=== PATIENT | female | born 1965 | race African-American/Black ===

== ENCOUNTER → 2022-11-23 13:31 | Outpatient (BNVA) | payer OTHER, SELFPAY | PROVIDERS: PCP Internal Medicine; Visit Provider Internal Medicine Rheumatology | DX: M79.7 Fibromyalgia (principal); M32.9 Systemic lupus erythematosus, unspecified | CPT/HCPCS: 99212 ==

== ENCOUNTER 2023-06-09 13:11 | Outpatient (AMB) | payer OTHER, SELFPAY ==
--- NOTE | 2023-06-09 13:27 | MHC.OFFVIS ---
Intake Vital Signs 06/09/23 13:28 Height 5 ft 4 in Weight 178 lb 12.718 oz BMI 30.7 BP 136/84 Blood Pressure Location Rt brachial Position Sitting Pulse 89 Pulse Source Pulse Oximeter Temp 96.8 F Temp Source Skin Pulse Oximetry (%) 99 Oxygen Delivery Method Room Air Intake Visit Reasons: fm/sle Intake Note: Pt last seen by Dr Alvarez on 11/23/22 presents today for FM follow up. Reports she was sick for approx 2 weeks during the holidays, but is feeling better now. C/o whole body pain and stiffness in hands and fingers. 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: No Accompanied by: Self / Same As Patient Allergies acetaminophen [From Vicodin] Adverse Reaction (Intermediate, Verified 06/09/23 13:31) Unknown hydrocodone [From Vicodin] Adverse Reaction (Intermediate, Verified 06/09/23 13:31) Unknown oxycodone [From Percocet] Adverse Reaction (Intermediate, Verified 06/09/23 13:31) Unknown Medication List - Last Reconciled 06/09/23 by Stefan Escobedo MD amlodipine 10 mg PO DAILY aripiprazole 10 mg PO DAILY aspirin 81 mg PO DAILY atorvastatin 40 mg PO DAILY bupropion HCl 200 mg PO BID chlorhexidine gluconate 0.12% PO clobetasol 0.05% topical clonidine 1 patch topical QWEEK ergocalciferol (vitamin D2) (Vitamin D2) 1,250 mcg PO QWEEK fesoterodine ER (Toviaz) 4 mg PO DAILY lamotrigine 150 mg PO BID lorazepam 1 mg PO BID losartan 100 mg PO DAILY methocarbamol 500 mg PO BID nicotine 1 patch topical DAILY quetiapine 300 mg PO BEDTIME sodium fluoride-pot nitrate 1.1-5 % PO HPI HPI Comments History of Present Illness Details 58-year-old female with fibromyalgia and mild SLE returns for follow-up. She is currently on methocarbamol 500 mg Twice daily. She stated that over the years she was on hydroxychloroquine. She was on it from approximately 2016 to 2019, it was stopped due to fear of side effects. She was also on gabapentin and it was stopped due to weight gain. She states that she is doing fairly well on methocarbamol 500 mg Twice daily. She has not had any rashes. She states that she does get flare-ups of fibromyalgia and she gets stiffness and cramping of the right side of her body including the right shoulder, hands, legs. Mostly at night. She speaks to a therapist regularly. She exercises daily, she does yoga and does daily walks. Most recent history by Dr. Alvarez 10/2022: The patient returns for evaluation of fibromyalgia and possible SLE. I had last seen her about 2 years ago at [place]. She had some symptoms years ago that looked like possible SLE. She was on some hydroxychloroquine but then felt too anxious about taking it. In recent years she just had scattered pains, helped with methocarbamol 500 b.i.d.. We thought these were just fibromyalgia. She says she had a episode of tingling and weakness I year 2 ago was told she had a small stroke. She is now on atorvastatin. She he was in the ER at [facility] was some chest pain. A follow-up stress test however was negative. She is receiving some physical therapy right now at the [facility] for her knee pain, foot pain in lower back pain. There has been no problems recently with rash, oral ulcers, chest pain or abdominal pain. She remains on Abilify, bupropion, clonidine patch, lamotrigine, lorazepam, and Seroquel for her anxiety and depression. [facility] Medical History (Updated 06/09/23 @ 13:58 by Stefan Escobedo MD) Anxiety and depression Anemia SLE (systemic lupus erythematosus) Fibromyalgia Hypertension Surgical History History of lumbar surgery Hx of bilateral breast reduction surgery Hx of colonoscopy Hx of cholecystectomy Family History (Updated 06/09/23 @ 13:56 by Stefan Escobedo MD) Son Lupus (systemic lupus erythematosus) Social History Alcohol intake: current Alcohol intake frequency: holidays/special occasions only Patient Tobacco Use Status: Current everyday Tobacco user Review of Systems [facility] Reports back pain, Reports arthralgias, Reports limited range of motion and Reports stiffness Physical Exam Vital Signs: Last Vital Signs Temp 96.8 F 06/09/23 13:28 Pulse 89 06/09/23 13:28 BP 136/84 06/09/23 13:28 Pulse Ox 99 06/09/23 13:28 Oxygen Delivery Method Room Air 06/09/23 13:28 BMI result Body Mass Index 30.7 Const General: cooperative, healthy appearing and comfortable Nutritional Appearance: overweight Orientation/consciousness: patient oriented x3 Limitations: no limitations HEENT Head: Yes normocephalic and Yes atraumatic Mouth: moist mucous membranes Resp Effort & Inspection: normal respiratory effort and able to speak in complete sentences Auscultation: clear to auscultation bilaterally Cardio Rate: regular rate Rhythm: regular rhythm GI Inspection: No distended Palpation (GI): Soft to palpation and nontender Skin General skin exam: no rashes or lesions noted Neuro General: patient oriented x3 Extrem Other: Mild flexion deformity of right 5th DIP No active synovitis Few fibromyalgia tender points Normal nailfold capillaroscopy Results Reviewed Results Reviewed: Labs from 2015 to 2019 Positive WAYNE 1:2560 homogeneous Indeterminate dsDNA level Negative Bazan/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 Widespread pains did not improve. Code(s): M32.9 - Systemic lupus erythematosus, unspecified Qualifiers: Systemic lupus erythematosus type: unspecified Systemic lupus erythematosus organ involvement: other Qualified Code(s): M32.19 - Other organ or system involvement in systemic lupus erythematosus (2) Fibromyalgia: Code(s): M79.7 - Fibromyalgia Plan: 58-year-old female previously diagnosed with SLE and fibromyalgia presents for follow-up. This is her 1st visit with me. She used to follow-up with Dr. Alvarez. I do not see any signs suggesting active autoimmune rheumatic disease upon my evaluation. Symptoms rather consistent with fibromyalgia. She has done fairly well on methocarbamol 500 mg Twice daily. She can continue with that. Patient is on aripiprazole, Seroquel and lamotrigine. Patient talks to her therapist weekly She does daily walks and does yoga regularly. Advised patient to discuss with her PCP a referral for a sleep study. Follow-up in six-months Plan I spent 16 minutes reviewing patient's chart, evaluating patient, counseling patient and documenting in the chart Medications: Refilled methocarbamol 500 mg PO BID 60 tabs 5RF M79.7 - Fibromyalgia Coding Level of Care Code Est Pt Level 3 (03146) Diagnoses Systemic lupus erythematosus with other organ involvement, unspecified SLE type M32.19 Systemic lupus erythematosus type: unspecified Systemic lupus erythematosus organ involvement: other Fibromyalgia M79.7
[2023-06-09 13:28] VITALS: BP 136/84; PULSE 89; TEMP 36; O2SAT 99; BMI 30.7
== END 2023-06-09 13:57 | disposition home or self-care (01) ==
PROVIDERS: PCP Internal Medicine; Visit Provider Student in an Organized Health Care Education/Training Program
DX: M32.19 Other organ or system involvement in systemic lupus erythematosus (principal); M79.7 Fibromyalgia
CPT/HCPCS: 99213

== ENCOUNTER → 2023-06-09 13:11 | Outpatient (BNVA) | payer OTHER, SELFPAY | PROVIDERS: PCP Internal Medicine; Visit Provider Student in an Organized Health Care Education/Training Program | DX: M32.19 Other organ or system involvement in systemic lupus erythematosus (principal); M79.7 Fibromyalgia | CPT/HCPCS: 99212 ==

== ENCOUNTER 2024-01-27 13:09 | Outpatient (AMB) | payer OTHER, SELFPAY ==
[2024-01-27 13:29] VITALS: BP 132/72; PULSE 66; O2SAT 96; BMI 31.1
--- NOTE | 2024-01-27 13:29 | A.OFFVIS_ITS ---
Vital Signs 01/27/24 13:29 Height 5 ft 4 in Weight 181 lb 7.047 oz BMI 31.1 BP 132/72 Blood Pressure Location Lt brachial Position Sitting Pulse 66 Pulse Source Pulse Oximeter Pulse Oximetry (%) 96 Oxygen Delivery Method Room Air Intake Visit Reasons: FMS Intake Note: Patient presents today for follow up on fibromyalgia, she was last seen on 06/09/2023. Allergies acetaminophen [From Vicodin] Adverse Reaction (Intermediate, Verified 01/27/24 13:32) Unknown hydrocodone [From Vicodin] Adverse Reaction (Intermediate, Verified 01/27/24 13:32) Unknown oxycodone [From Percocet] Adverse Reaction (Intermediate, Verified 01/27/24 13:32) Unknown Medication List - Last Reconciled 01/27/24 by Stefan Escobedo MD amlodipine 10 mg PO DAILY aripiprazole 10 mg PO DAILY aspirin 81 mg PO DAILY atorvastatin 40 mg PO DAILY bupropion HCl SR 200 mg PO BID chlorhexidine gluconate 0.12% PO clobetasol 0.05% topical clonidine 1 patch topical QWEEK clonidine HCl 0.1 mg PO BID ergocalciferol (vitamin D2) (Vitamin D2) 1,250 mcg PO QWEEK fesoterodine ER (Toviaz) 4 mg PO DAILY lamotrigine 150 mg PO BID lorazepam 1 mg PO BID losartan 100 mg PO DAILY methocarbamol 500 mg PO BID nicotine 1 patch topical DAILY olmesartan-hydrochlorothiazide 40-12.5 mg 1 tab PO DAILY quetiapine 300 mg PO BEDTIME sodium fluoride-pot nitrate 1.1-5 % PO HPI Comments Details: 59-year-old female with fibromyalgia and mild SLE returns for follow-up. She states that she continues to have episodes of her joints stiffening up. These episodes happen a few times a day. She also states that she gets rashes on her face, neck and chest when out in the sun but she treats it with topical steroid creams. No other complaints today. She has not had any rashes. She states that she does get flare-ups of fibromyalgia and she gets stiffness and cramping of the right side of her body including the right shoulder, hands, legs. Mostly at night. She speaks to a therapist regularly. She exercises daily, she does yoga and does daily walks. Most recent history by Dr. Alvarez 10/2022: The patient returns for evaluation of fibromyalgia and possible SLE. I had last seen her about 2 years ago at [place]. She had some symptoms years ago that looked like possible SLE. She was on some hydroxychloroquine but then felt too anxious about taking it. In recent years she just had scattered pains, helped with methocarbamol 500 b.i.d.. We thought these were just fibromyalgia. She says she had a episode of tingling and weakness I year 2 ago was told she had a small stroke. She is now on atorvastatin. She he was in the ER at [facility] was some chest pain. A follow- up stress test however was negative. She is receiving some physical therapy right now at the [facility] for her knee pain, foot pain in lower back pain. There has been no problems recently with rash, oral ulcers, chest pain or abdominal pain. She remains on Abilify, bupropion, clonidine patch, lamotrigine, lorazepam, and Seroquel for her anxiety and depression. [facility] Medical History Anxiety and depression Anemia SLE (systemic lupus erythematosus) Fibromyalgia Hypertension Surgical History History of lumbar surgery Hx of bilateral breast reduction surgery Hx of colonoscopy Hx of cholecystectomy Family History Son Lupus (systemic lupus erythematosus) Social History Alcohol intake: current Alcohol intake frequency: holidays/special occasions only Patient Tobacco Use Status: Current everyday Tobacco user Review of Systems [facility] Reports arthralgias, Reports limited range of motion and Reports stiffness Skin/Breast Reports rash Physical Exam Vital Signs: Last Vital Signs Pulse 66 01/27/24 13:29 BP 132/72 01/27/24 13:29 Pulse Ox 96 01/27/24 13:29 Oxygen Delivery Method Room Air 01/27/24 13:29 BMI result Body Mass Index 31.1 Const General: cooperative, healthy appearing and comfortable Nutritional Appearance: overweight Orientation/consciousness: patient oriented x3 Limitations: no limitations HEENT Head: Yes normocephalic and Yes atraumatic Mouth: moist mucous membranes Resp Effort & Inspection: normal respiratory effort and able to speak in complete sentences Auscultation: clear to auscultation bilaterally Cardio Rate: regular rate Rhythm: regular rhythm GI Inspection: No distended Palpation (GI): Soft to palpation and nontender Skin General skin exam: no rashes or lesions noted Neuro General: patient oriented x3 Extrem Other: Mild flexion deformity of right 5th DIP No active synovitis Few fibromyalgia tender points Normal nailfold capillaroscopy Results Reviewed Results Reviewed: Labs from 2015 to 2019 Positive WAYNE 1:2560 homogeneous Indeterminate dsDNA level Negative 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 Widespread pains did not improve. Code(s): M32.9 - Systemic lupus erythematosus, unspecified Category: Medical Qualifiers: Systemic lupus erythematosus type: unspecified Systemic lupus erythematosus organ involvement: other Qualified Code(s): M32.19 - Other organ or system involvement in systemic lupus erythematosus Plan: Labs before next visit in 6 months (2) Fibromyalgia: Code(s): M79.7 - Fibromyalgia Category: Medical Plan: 58-year-old female previously diagnosed with SLE and fibromyalgia presents for follow-up. I do not see any signs suggesting active autoimmune rheumatic disease upon my evaluation. Symptoms rather consistent with fibromyalgia. She has done fairly well on methocarbamol 500 mg Twice daily. She can continue with that. Patient is on aripiprazole, Seroquel and lamotrigine. Patient talks to her therapist weekly She does daily walks and does yoga regularly. Plan I spent 26 minutes reviewing patient's chart, evaluating patient, ordering diagnostic workup, counseling patient and documenting in the chart Orders: Orders Anti Extractable Nuclear Ag Today M32.19 - Other organ or system involvement in systemic lupus erythematosus Anti DNA DS Antibody Today M32.19 - Other organ or system involvement in systemic lupus erythematosus Complement C3 Today M32.19 - Other organ or system involvement in systemic lupus erythematosus DNA Double Stranded-Crithidia Today M32.19 - Other organ or system involvement in systemic lupus erythematosus Erythrocyte Sedimentation Rate Today M32.19 - Other organ or system involvement in systemic lupus erythematosus Protein Creatinine Ratio, Ur Today M3. - Other organ or system involvement in systemic lupus erythematosus Complete Blood Count Auto Diff Today M3. - Other organ or system involvement in systemic lupus erythematosus Comprehensive Met. Panel Today M3. - Other organ or system involvement in systemic lupus erythematosus Immunofixation Pnl, Serum Today M3. - Other organ or system involvement in systemic lupus erythematosus Complement C4 Today . - Other organ or system involvement in systemic lupus erythematosus C Reactive Protein Today . - Other organ or system involvement in systemic lupus erythematosus UA w Microscopic Today M3. - Other organ or system involvement in systemic lupus erythematosus Sjogren's Antibodies Today M3. - Other organ or system involvement in systemic lupus erythematosus Protein Electrophoresis, Serum Today M3. - Other organ or system involvement in systemic lupus erythematosus Coding Level of Care Code Est Pt Level 4 (41492) Diagnoses Systemic lupus erythematosus with other organ involvement, unspecified SLE type M3. Systemic lupus erythematosus type: unspecified Systemic lupus erythematosus organ involvement: other Fibromyalgia M79.7
== END 2024-01-27 14:04 | disposition home or self-care (01) ==
PROVIDERS: PCP Internal Medicine; Visit Provider Student in an Organized Health Care Education/Training Program
DX: M32.19 Other organ or system involvement in systemic lupus erythematosus (principal); M79.7 Fibromyalgia
CPT/HCPCS: 99214

== ENCOUNTER → 2024-01-27 13:09 | Outpatient (BNVA) | payer OTHER, SELFPAY | PROVIDERS: PCP Internal Medicine; Visit Provider Student in an Organized Health Care Education/Training Program | DX: M32.19 Other organ or system involvement in systemic lupus erythematosus (principal); M79.7 Fibromyalgia | CPT/HCPCS: 99212 ==

== ENCOUNTER 2025-03-15 13:28 | Outpatient (AMB) | payer OTHER, SELFPAY ==
--- NOTE | 2025-03-15 14:34 | MHC.OFFVIS ---
Vital Signs 03/15/25 14:39 Height 5 ft 4 in Weight 179 lb 10.828 oz BMI 30.8 BP 122/78 Blood Pressure Location Lt brachial Position Sitting Pulse 78 Pulse Source Pulse Oximeter Pulse Oximetry (%) 99 Oxygen Delivery Method Room Air Intake Visit Reasons: SLE Intake Note: Patient presents for SLE follow up. Allergies acetaminophen (From Vicodin) Adverse Reaction (Intermediate, Verified 03/15/25 14:38) Unknown hydrocodone (From Vicodin) Adverse Reaction (Intermediate, Verified 03/15/25 14:38) Unknown oxycodone (From Percocet) Adverse Reaction (Intermediate, Verified 03/15/25 14:38) Unknown Medication List - Last Reconciled 03/15/25 by Radha Garcia MD amlodipine 10 mg PO DAILY aripiprazole 10 mg PO DAILY aspirin 81 mg PO DAILY atorvastatin 40 mg PO DAILY bupropion HCl SR 200 mg PO BID chlorhexidine gluconate 0.12% PO clobetasol 0.05% topical clonidine 1 patch topical QWEEK clonidine HCl 0.1 mg PO BID ergocalciferol (vitamin D2) (Vitamin D2) 1,250 mcg PO QWEEK fesoterodine ER (Toviaz) 4 mg PO DAILY lamotrigine 150 mg PO BID lorazepam 1 mg PO BID losartan 100 mg PO DAILY methocarbamol 500 mg PO BID nicotine 1 patch topical DAILY olmesartan-hydrochlorothiazide 40-12.5 mg 1 tab PO DAILY quetiapine 300 mg PO BEDTIME sodium fluoride-pot nitrate 1.1-5 % PO HPI Comments Details: Patient is a 60-year-old female with hypertension, hyperlipidemia, anxiety and depression, SLE and fibromyalgia here today for follow up Interval History: Patient last seen 01/27/[address] Escobedo - Not on any DMARDs - She states that she continues to have episodes of her joints stiffening up. These episodes happen a few times a day. She also states that she gets rashes on her face, neck and chest when out in the sun but she treats it with topical steroid creams. No other complaints today. - She states that she does get flare-ups of fibromyalgia and she gets stiffness and cramping of the right side of her body including the right shoulder, hands, legs. Mostly at night. She speaks to a therapist regularly. She exercises daily, she does yoga and does daily walks. Today - Not on any DMARDs - On methocarbamol 500mg bid - Still complaining of whole body pain - Still gets photosensitivity rashes - Also has alopecia - No oral/nasal ulcers - Also denies history of seizure, CVA, psychosis, history of kidney problems, history of cytopenias, history of VTE including PE or DVTs Rheumatologic History: No major organ .positive WAYNE, family history of lupus.+ alopecia, oral ulcers and malar rash with joint pain and stiffness.Plaquenil started 2015, stopped 06/18 as patient became too worried about possible side effects. Widespread pains did not improve. Initial History: The patient returns for evaluation of fibromyalgia and possible SLE. I had last seen her about 2 years ago at [place]. She had some symptoms years ago that looked like possible SLE. She was on some hydroxychloroquine but then felt too anxious about taking it. In recent years she just had scattered pains, helped with methocarbamol 500 b.i.d.. We thought these were just fibromyalgia. She says she had a episode of tingling and weakness I year 2 ago was told she had a small stroke. She is now on atorvastatin. She he was in the ER at [facility] was some chest pain. A follow-up stress test however was negative. She is receiving some physical therapy right now at the [facility] for her knee pain, foot pain in lower back pain. There has been no problems recently with rash, oral ulcers, chest pain or abdominal pain. She remains on Abilify, bupropion, clonidine patch, lamotrigine, lorazepam, and Seroquel for her anxiety and depression. Current Rheumatology Medication(s): [facility] Medical History Anxiety and depression Anemia SLE (systemic lupus erythematosus) Fibromyalgia Hypertension Surgical History History of lumbar surgery Hx of bilateral breast reduction surgery Hx of colonoscopy Hx of cholecystectomy Family History Son Lupus (systemic lupus erythematosus) Social History Alcohol intake: current Alcohol intake frequency: holidays/special occasions only Patient Tobacco Use Status: Current everyday Tobacco user Review of Systems Const Details: Review of Systems Constitutional: Denies fever, chills, weight loss ENT: Denies vision changes, eye pain or eye redness, dental caries, dry mouth GI: Denies nausea, vomiting, diarrhea, abdominal pain, change in BM Pulm: Denies SOB, [place], hemoptysis, wheezing Cards: Denies chest pain, palpitations Skin: Denies nail changes, photosensitivity, 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 Well appearing and in no apparent painful distress MSK Hands Right Hand: Able to make a fist. No swelling or tenderness to palpation of the MCPs, PIPs or DIPs. Left Hand: Able to make a fist. No swelling or tenderness to palpation of the MCPs, PIPs or DIPs. Has some TTP to scattered joints, no distinct pattern Wrists Right Wrist: Full ROM to flexion and extension. No swelling or TTP Left Wrist: Full ROM to flexion and extension. No swelling or TTP Elbows Right Elbow: Full ROM. No swelling or TTP. No TTP of the medial epicondyle. No TTP of the lateral epicondyle Left Elbow: Full ROM. No swelling or TTP. No TTP of the medial epicondyle. TTP of the lateral epicondyle Shoulders Right shoulder: No swelling noted. No TTP of the AC joint. No TTP of the subacromial bursa. No TTP of the posterior shoulder Left shoulder: No swelling noted. No TTP of the AC joint. No TTP of the subacromial bursa. No TTP of the posterior shoulder Hip bursa: Tenderness to palpation bilaterally Knees Right knee: Full ROM. No swelling noted. No TTP of the knee joint line. No TTP of pes anserine bursa Left knee: Full ROM. No swelling noted. No TTP of the knee joint line. No TTP of pes anserine bursa. Ankles Right ankle: Good ankle dorsiflexion and plantar flexion. No swelling. No TTP of the ankle joint Left ankle: Good ankle dorsiflexion and plantar flexion. No swelling. No TTP of the ankle joint Feet Right foot: Negative squeeze test Left foot: Negative squeeze test Tender points? No tenderness to palpation of the bilateral trapezius, supraspinatus, anterior costochondral junctions, bilateral suboccipital muscle insertions SKIN No rashes Vital Signs: Last Vital Signs Pulse 78 03/15/25 14:39 BP 122/78 03/15/25 14:39 Pulse Ox 99 03/15/25 14:39 Oxygen Delivery Method Room Air 03/15/25 14:39 BMI result Body Mass Index 30.8 Results Reviewed Results Reviewed: no labs to review Assessment & Plan Assessment & Plan (1) SLE (systemic lupus erythematosus): Comment: Nonmajor organ .positive WAYNE, family history of lupus.+ alopecia, oral ulcers and malar rash with joint pain and stiffness.Plaquenil started 2015, stopped 06/18 as patient became too worried about possible side effects. Widespread pains did not improve. Code(s): M32.9 - Systemic lupus erythematosus, unspecified Category: Medical Qualifiers: Systemic lupus erythematosus type: unspecified Systemic lupus erythematosus organ involvement: other Qualified Code(s): M32.19 - Other organ or system involvement in systemic lupus erythematosus Plan: #SLE Patient is 60 year old female with SLE here today for follow up No evidence of active lupus at this time Plan - Labs today: CBC, CMP, ESR, CRP, C3, C4, dsDNA, UA, UPC - RTC 1 year (2) Fibromyalgia: Code(s): M79.7 - Fibromyalgia Category: Medical Plan: #Fibromyalgia Her main issue today is her fibromyalgia Discussed that fibromyalgia is not a treatable disease and patient voiced understanding. 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
[2025-03-15 14:39] VITALS: BP 122/78; PULSE 78; O2SAT 99; BMI 30.8
--- OUTSIDE RECORDS SUMMARY | 2025-03-15 16:56 | XMS_ITS ---
Author Name [facility] Organization Unknown Care Team Organization Name Specialty Phone Email Start Date End Da te [facility] 04/07/2022 01/17/20 24
--- OUTSIDE RECORDS SUMMARY | 2025-03-15 16:56 | XMS_ITS | Clinical Summary ---
Author Organization [facility] Address [address] [place] [address] Phone Care Team Providers Care Food [employer] Caterer Name Role Phone Juan Michel MD Primary Care Provider [phone] Allergies Active Allergy Reactions Criticality Noted Date Comments Beeswax Shortness of breath,Rash High 03/01/2025 Hydrocodone-Acetaminophen 06/25/2020 Oxycodone 11/11/2022 Oxycodone-Acetaminophen Anaphylaxis High 12/07/2011 Medications ARIPiprazole (ABILIFY) 10 mg tablet Take 10 mg by mouth daily. Active atorvastatin (LIPITOR) 40 mg tablet Take 1 tablet (40 mg total) by mouth 1 (one) time each day. 4 Active buPROPion SR (WELLBUTRIN SR) 200 mg 12 hr tablet Take 1 tablet (200 mg total) by mouth 2 (two) times a day. 1 Active carvediloL (COREG) 6.25 mg tablet Take 1 Tablet by mouth 2 times daily (with meals). 4 Active cloNIDine (CATAPRES) 0.1 mg tablet Take 1 tablet (0.1 mg total) by mouth 2 (two) times a day. 4 Active fluticasone propionate (FLONASE) 50 mcg/actuation nasal spray 2 Sprays by Each Nare route daily for 360 days. 4 Active lamoTRIgine (LaMICtal) 150 mg tablet Take 1 tablet (150 mg total) by mouth 2 (two) times a day. 1 Active LORazepam (ATIVAN) 1 mg tablet Take 1 Tablet by mouth 2 times daily as needed. 4 Active QUEtiapine (SEROquel) 300 mg tablet Take 1 tablet (300 mg total) by mouth 1 (one) time each day. 1 Active spironolactone (ALDACTONE) 50 mg tablet Take 1 tablet (50 mg total) by mouth 1 (one) time each day in the morning. 4 Active aspirin 81 mg EC tablet Take 1 tablet (81 mg total) by mouth 1 (one) time each day. 90 tablet 5 Active indapamide (LOZOL) 2.5 mg tablet Take 1 tablet (2.5 mg total) by mouth 1 (one) time each day in the morning. 90 tablet 1 5 Active olmesartan (BENICAR) 40 mg tablet Take 1 tablet (40 mg total) by mouth 1 (one) time each day in the evening. 90 each 1 5 Active fesoterodine 8 mg tablet extended release 24 hr Take 8 mg by mouth 1 (one) time each day. 90 tablet 3 5 09/22/19 26 Active NIFEdipine XL (PROCARDIA XL) 60 mg 24 hr tablet Take 1 tablet (60 mg total) by mouth 1 (one) time each day before breakfast. Do not crush, chew, or split. 90 each 3 5 02/14/20 26 Active methocarbamoL (ROBAXIN) 500 mg tablet Take 1 tablet (500 mg total) by mouth 1 (one) time each day. 30 tablet 1 5 Active fluticasone propionate (FLONASE) 50 mcg/actuation nasal spray Administer 2 sprays into each nostril 1 (one) time each day. Shake gently. Before first use, prime pump. After use, clean tip and replace cap. 16 g 5 5 03/01/20 26 Active methocarbamoL (ROBAXIN) 500 mg tablet Take 1 tablet (500 mg total) by mouth 1 (one) time each day. 30 tablet 1 5 03/01/20 25 Discontinu ed(Reorder ) Active Problems Problem Noted Date Diagnosed Date Hypercholesterolemia 03/01/2025 ASCUS with positive high risk HPV cervical 06/13 Overview (04/18/2024): Pap smear 06/06/18 Colpo 09/2018 - neg Pap 05/2020 - ASCUS, HPV 16 positive Colpo 06/27/2020 - chronic cervicitis, no evidence of dysplasia HTN (hypertension), benign 03/01/2018 Fibromyalgia 12/28/2017 Muscle spasm 05/06/2017 SLE (systemic lupus erythema tosus) ([facility] V24, [facility] V28) 08/01/2015 Overview (04/18/2024): Nonmajor organ .positive WAYNE, family history of lupus.+ alopecia, oral ulcers and malar rash with joint pain and stiffness.Plaquenil started 2015, stopped 06/18 as patient became too worried about possible side effects. Widespread pains did not improve. Lumbago 10/04/2012 Overview (04/18/2024): Surgery X 2; uses TENS unit Vitamin D deficiency 12/23/2009 Anemia 12/09/2009 Anxiety 12/09/2009 Depression 12/09/2009 Overview (04/18/2024): On multiple meds Encounters Date Type Department Care Team Description 03/01/2025 2:45 PM EDT Office Visit Internal Medicine - [address] [place] [phone] Juan Michel MD Primary hypertension (Primary Dx); Seasonal allergies; Polyarthralgia; Hypercholesterolemia 02/13/2025 3:00 PM EDT Office Visit Nephrology - [address] [place] [phone] Chintan eFrraro MD HTN (hypertension), benign (Primary Dx); Other forms of systemic lupus erythematosus, unspecified organ involvement status ([facility] V24, [facility] V28) 02/09/2025 Telephone Internal Medicine - [address] [place] [phone] Juan Michel MD 01/24/2025 [facility] [address] [phone] Juan Michel MD 01/11/2025 [facility] [address] [phone] Juan Michel MD 01/11/2025 [facility] [address] [phone] Juan Michel MD 01/10/2025 [facility] [address] [phone] Juan Michel MD 01/04/2025 [facility] [address] [phone] Juan Michel MD 12/26/2024 [facility] [address] [phone] Juan Michel MD from Last 3 Months Immunizations Immunization Administration Dates Next Due Influenza Quadravalent, MDCK , 0.5ml, with preservative (Flucelvax) 6mo and older 02/02/2017 Td Tetanus diptheria (Tdvax) 7yo and older 01/16 Tdap Tetanus diptheria acell ular pertussis (Boostrix; Adacel) 7yo and older 12/09/2009 Surgical History Surgery Date Site/Laterality Comments CHOLECYSTECTOMY PROCEDURE: HISTORICAL CHOLECYSTECTOMY COLONOSCOPY 05/31/2015 PROCEDURE: HISTORICAL COLONOSCOPY; COMMENT: normal BREAST REDUCTION 10/29/2013 Bilateral PROCEDURE: [place] BREAST REDUCTION BACK SURGERY PROCEDURE: HISTORICAL BACK SURGERY HAND SURGERY PROCEDURE: HISTORICAL HAND SURGERY Medical History Medical History Date Comments Stroke (CMS/HCC V24, CMS/HCC V28) DX:Stroke (HCC) Systemic lupus erythematosus with organ system involvement (CMS/HCC V24, CMS/HCC V28) DX:Systemic lupus erythemato bhavin with organ system involvement (HCC) Essential (primary) hypertension DX:Essential (primary) hypertension Fibromyalgia DX:Fibromyalgia Family History Medical History Relation Name Comments Breast cancer Neg Hx Colon cancer Neg Hx Ovarian cancer Neg Hx Relation Name Status Comments Brother 1 Alive Brother 2 Alive Mother Alive Sister Alive Social History Tobacco Use Types Packs/Day Years Used Date Smoking Tobacco: Every Day Cigarettes Last attempted to quit: 06/08/2020 Smokeless Tobacco: Never Alcohol Use Standard Drinks/Week Comments Yes 0 (1 standard drink = 0.6 oz pur e alcohol) Comments No Sex and Gender Information Value Date Recorded Sex Assigned at Not on file Legal Sex Female 2:46 AM EST Gender Identity Not on file Sexual Orientation Not on file Obstetrics History Last Filed Vital Signs Vital Sign Reading Time Taken Comments Blood Pressure 140/82 03/01/2025 2:14 PM EDT Pulse 76 03/01/2025 2:14 PM EDT Temperature - - Respiratory Rate - - Oxygen Saturation 96% 09/19/2024 2:00 PM EDT Inhaled Oxygen Concentration - - Weight 80.7 kg (178 lb) 03/01/2025 2:14 PM EDT Height 162.6 cm (5' 4 ) 03/01/2025 2:14 PM EDT Body Mass Index 30.55 03/01/2025 2:14 PM EDT Plan of Treatment Upcoming Encounters Date Type Department Care Team (Late st Contact Info) Description 05/15/2025 3:00 PM EST Office Visit Nephrology - [address] [phone] Chintan Ferraro MD [address] [phone] 08/30/2025 2:45 PM EDT Office Visit Internal Medicine - [address] [phone] Juan Michel MD [address] [place] [address] 09/26/2025 3:15 PM EDT Office Visit Urogynecology [address] [phone] Aminah Mojica MD [address] [place] [address] Rd [address] [place] [address] Health Maintenance Due Date Last Done Comments Zoster Vaccines (1 of 2) 01/12/2014 Pneumococcal Vaccine: 50+ Years (2 of 2 - PCV) 02/04/2014 02/04/2013 HIV Screening 05/09/2022 Social Influencers of Health Screening 05/09/2022 Depression Screening 05/31/2024 COVID-19 Vaccine (1 - season) 2025 Influenza Vaccine (#1) 2025 02/02/2017 Hypertension/CHF/CAD Annual BMP Blood Test 08/30/2025 08/30/2024 Colorectal Cancer Screening: Colonoscopy 10/02/2025 10/03/2015 Breast Cancer Screening 11/11/2025 11/12/19, 11/12/2023, 10/24/2021, Additional history exists Cervical Cancer Screening: HPV 06/23/2027 06/23/2022 Cholesterol Screening (Lipid Panel) 08/30/2029 08/30/2024, 08/03/2023 DTaP,Tdap,and Td Vaccines (3 - Td or Tdap) 01/16/2030 01/17/2020, 12/09/2009 RSV Immunization Adult Patients (1 - 1-dose 75+ series) 01/12/2039 Hepatitis C Screening Completed 09/19/2024, 016 HIB Vaccines Aged Out No longer eligi ble based on patient's age to complete this topic HPV Vaccines Aged Out No longer eligi ble based on patient's age to complete this topic Hepatitis A Vaccines Aged Out No long er eligible based on patient's age to complete this topic Hepatitis B Vaccines Aged Out No long er eligible based on patient's age to complete this topic IPV Vaccines Aged Out No longer eligi ble based on patient's age to complete this topic MMR Vaccines Aged Out No longer eligi ble based on patient's age to complete this topic Meningococcal ACWY Vaccine Aged Out N o longer eligible based on patient's age to complete this topic Meningococcal B Vaccine Aged Out No l onger eligible based on patient's age to complete this topic RSV Immunization Patients Under 20 months Aged Out No longer eligible based on patient's age to complete this topic Varicella Vaccines Aged Out No longer eligible based on patient's age to complete this topic Procedures Procedure Name Priority Date/Time Associated Diagnosis Comments HEPATITIS C ANTIBODY Routine 09/19/2024 2:35 PM EDT Transaminitis BASIC METABOLIC PANEL Routine 08/30/2024 2:28 PM EDT HTN (hypertension), benign LIPID PANEL WITH REFLEX TO DIRECT LDL Routine 08/30/2024 2:28 PM EDT HTN (hypertension), benign TYELR SCREENING DIGITAL Routine 11/12/2023 2:03 PM EDT Encounter for screening mammogram for malignant neoplasm of breast HM HPV Routine 06/23/2022 from Last 3 Months or Most Recently Relevant to Health Maintenance Results * Hepatitis C antibody (09/19/2024 2:35 PM EDT) [facility] Hepatitis C Antibody Negative Negative LAB CHEMISTRY METHOD 09/19/2024 5:47 PM EDT [facility] Blood Venous blood specimen / Unknown Venipuncture / Unknown 09/19/2024 2:35 PM EDT 09/19/2024 3:30 PM EDT Charlotte Castellano [employer] LAB BLOOD ORDERABLES Final Resu lt [facility] [address] [place] [address], * (ABNORMAL) Lipid panel with reflex to direct LDL (08/30/2024 2:28 PM EDT) Pathologist [facility] Cholesterol 178 0 - 200 mg/dL LAB CHEMISTRY METHOD 08/30/2024 7:17 PM EDT [facility] Triglycerides 74 0 - 150 mg/dL LAB CHEMISTRY METHOD 08/30/2024 7:17 PM EDT [facility] HDL 46 >=40 mg/dL LAB CHEMISTRY METHOD 08/30/2024 7:17 PM EDT [facility] LDL Calculated 117(H) 0 - 100 mg/dL LAB [facility]STR[facility]DL Cholesterol Boni 14.8 mg/dL LAB CHEMISTRY METHOD 08/30/2024 7:17 PM EDT [facility] Non HDL Chol. (LDL+VLDL) 132 <145 mg/dL LAB CHEMISTRY METHOD 08/30/2024 7:17 PM EDT [facility] Chol/HDL Ratio 3.9 0.0 - 4.4 LAB CHEMISTRY METHOD 08/30/2024 7:17 PM [facility] Blood Venous blood specimen / Unknown Venipuncture / Unknown 08/30/2024 2:28 PM EDT 08/30/2024 2:28 PM EDT us Juan Michel MD LAB BLOOD ORDERABLES Final Res ult [facility] [address] [place] [address], * (ABNORMAL) Basic metabolic panel (08/30/2024 2:28 PM EDT) Sodium 135 133 - 145 mmol/L LAB CHEMISTRY METHOD 08/30/2024 7:17 PM [facility] Potassium 3.8 3.5 - 5.5 mmol/L LAB CHEMISTRY METHOD 08/30/2024 7:17 PM [facility] Chloride 104 96 - 110 mmol/L LAB CHEMISTRY METHOD 08/30/2024 7:17 PM [facility] CO2 29 21 - 32 mmol/L LAB CHEMISTRY METHOD 08/30/2024 7:17 PM [facility] Anion Gap 2(L) 3 - 11 LAB CHEMISTRY METHOD 08/30/2024 7:17 PM [facility] Glucose 107(H) 70 - 100 mg/dL LAB CHEMISTRY METHOD 08/30/2024 7:17 PM EDT [facility] BUN 20 5 - 25 mg/dL LAB CHEMISTRY METHOD 08/30/2024 7:17 PM EDT [facility] Creatinine 0.78 0.50 - 1.10 mg/dL LAB CHEMISTRY METHOD 08/30/2024 7:17 PM EDT [facility] eGFR 87 >=60 mL/min/1. 73m2 LAB CHEMISTRY METHOD 08/30/2024 7:17 PM EDT [facility] Comment:Calculation based on the Chronic Kidney Disease Epidemiology Collaboration (CKD-EPI) equation refit without adjustment for race. BUN/Creatinine Ratio 25.6 LAB CHEMISTRY METHOD 08/30/2024 7:17 PM EDT [facility] Calcium 9.8 8.5 - 10.5 mg/dL LAB CHEMISTRY METHOD 08/30/2024 7:17 PM EDT [facility] Blood Venous blood specimen / Unknown Venipuncture / Unknown 08/30/2024 2:28 PM EDT 08/30/2024 2:28 PM EDT us Juan Michel MD LAB BLOOD ORDERABLES Final Res ult [facility] [address] [place] [address], * TYLER SCREENING DIGITAL (11/12/2023 2:03 PM EDT) Anatomical Region Laterality Modality Mammography 11/12/2023 1:17 PM EDT Narrative 11/12/2023 2:03 PM EDT [facility] Diagnostic Imaging Department [address] [place] [address] Patient: NELLY PRASAD /Age/Sex: 1965 - 58 - F Unit#: [id number] Location/Status: SPDIMAM/REG CLI Mnemonic/Ordering Site: [facility] Ordering Physician: JUAN MICHEL MD [facility] Screening Digital - 11/12/23 - 1332 Report Status:Signed EXAM: [facility] Screening Digital EXAM DATE AND TIME: 11/12/2023 1:33 PM HISTORY: Screening. Reduction mammoplasty in 2013. COMPARISON: 10/24/21, 10/14/20, 08/04/19 TECHNIQUE: Bilateral digital breast tomosynthesis was performed in the CC and MLO projections. Computer aided detection with Retsly 3D 3.1 was employed. TISSUE DENSITY: a. The breasts are almost entirely fatty. FINDINGS: Reduction mammoplasty sequelae are again noted. No suspicious masses, grouped microcalcifications, or areas of architectural distortion are seen. Several tiny benign rim calcifications are seen in the anterior aspects of both breasts, unchanged. The skin and vascularity are unremarkable. IMPRESSION: Stable mammographic appearance of the breasts. No evidence of malignancy is seen. A negative mammogram in the presence of a clinically suspicious palpable abnormality does not preclude the possibility of malignancy or alter the indications for biopsy. BI-RADS: Category 2: Benign RECOMMENDATION(S): 1: Routine screening mammogram BILATERAL in 1 year. Dictating Physician: VIRGINIA CASTANEDA MD Electronically Signed by: VIRGINIA CASTANEDA MD Dic Date/Time: 11/12/23 140 Sign date/Time: 11/12/23 1403 Procedure Note Virginia Castaneda MD - 03/15/2024 [facility] Diagnostic Imaging Department [address] [place] [address] Patient: NELLY PRASAD /Age/Sex: 1965 - 58 - F Unit#: [id number] Location/Status: SPDIMAM/REG CLI Mnemonic/Ordering Site: [facility] Ordering Physician: JUAN MICHEL MD [facility] Screening Digital - 11/12/23 - 1332 Report Status:Signed EXAM: [facility] Screening Digital EXAM DATE AND TIME: 11/12/2023 1:33 PM HISTORY: Screening. Reduction mammoplasty in 2013. COMPARISON: 10/24/21, 10/14/20, 08/04/19 TECHNIQUE: Bilateral digital breast tomosynthesis was performed in the CCand MLO projections. Computer aided detection with Retsly 3D 3.1was employed. TISSUE DENSITY: a. The breasts are almost entirely fatty. FINDINGS: Reduction mammoplasty sequelae are again noted. No suspicious masses,grouped microcalcifications, or areas of architectural distortion are seen.Several tiny benign rim calcifications are seen in the anterior aspects of bothbreasts, unchanged. The skin and vascularity are unremarkable. IMPRESSION: Stable mammographic appearance of the breasts. No evidence of malignancyis seen. A negative mammogram in the presence of a clinically suspicious palpable abnormality does not preclude the possibility of malignancy or alter the indications for biopsy. BI-RADS: Category 2: Benign RECOMMENDATION(S): 1: Routine screening mammogram BILATERAL in 1 year. Dictating Physician: VRIGINIA CASTANEDA MD Electronically Signed by: VIRGINIA CASTANEDA MD Dic Date/Time: 11/12/23 1402 Sign date/Time: 11/12/23 1403 us Juan Michel MD IMG BI PROCEDURES Final Result * Cervical Cancer Screening: HPV (06/23/2022) Cervical Cancer Screening: HPV negative, abstracted Historical Provider HEALTH MAINTENANCE Final Result from Last 3 Months or Most Recently Relevant to Health Maintenance Insurance [facility] Care Teams [employer] Cate[employer] Relationship Specialty Start Date End Date Juan Michel MD [address] [place] [id number] PCP - General Internal Medicine 03/29/24
== END 2025-03-15 15:37 | disposition home or self-care (01) ==
LOC: HO.RHES 13:29
PROVIDERS: PCP Internal Medicine; Visit Provider Student in an Organized Health Care Education/Training Program
DX: M32.19 Other organ or system involvement in systemic lupus erythematosus (principal); M79.7 Fibromyalgia
CPT/HCPCS: 99215

== ENCOUNTER → 2025-03-15 13:28 | Outpatient (BNVA) | payer OTHER, SELFPAY | PROVIDERS: PCP Internal Medicine; Visit Provider Student in an Organized Health Care Education/Training Program | DX: M32.19 Other organ or system involvement in systemic lupus erythematosus (principal); M79.7 Fibromyalgia | CPT/HCPCS: 99212 ==